=== PATIENT | female | born 1990 | race American Indian/Alaskan Native ===

== ENCOUNTER 2018-08-01 10:10 | Emergency (ER) | payer MEDICAID ==
[2018-08-01 10:10] VITALS: BMI 31.3
[2018-08-01 10:31] VITALS: RESP 18
[2018-08-01] MEDS ORDERED: Sodium Chloride 0.9% 500 ML IV ONE (10:48)
--- NOTE | 2018-08-01 10:50 | C.PDOC ---
History Of Present Illness 28 y/o female, with no significant PMHx, presents to ED c/o lower abdominal pain worse in the left adnexal region for the past week. Pt reports being evaluated at another institution and was told "everything is ok". She also complains of brown vaginal discharge. She admits to being sexually active without protection. Denies fever, n/v/d, or other complaints. Time Seen by Provider: 08/01/18 10:35 Chief Complaint (Nursing): Abdominal Pain History Per: Patient History/Exam Limitations: no limitations Past Medical History Reviewed: Historical Data, Nursing Documentation, Vital Signs Vital Signs: Last Vital Signs Temp 98.9 F 08/01/18 10:28 Pulse 100 H 08/01/18 10:28 Resp 18 08/01/18 10:28 BP 146/103 H 08/01/18 10:28 Pulse Ox 100 08/01/18 10:28 - Medical History PMH: Back Problems (Scoliosis?) - [facility] Procedures LAPAROSCOPIC ROBOTIC ASSISTED PROCEDURE (05/12/15) LOW CERVICAL (10/11/14) OTH LAPAROSCOPIC REP OTH HRN OF ANTER ABD WALL W GRF OR PROS (05/12/15) Family History: States: Unknown Family Hx - Social History Hx Tobacco Use: No Hx Alcohol Use: No Hx Substance Use: No - Immunization History Hx Tetanus Toxoid Vaccination: No Hx Influenza Vaccination: No Hx Pneumococcal Vaccination: No Review Of Systems Except As Marked, All Systems Reviewed And Found Negative. Constitutional: Negative for: Fever, Chills Gastrointestinal: Positive for: Abdominal Pain. Negative for: Nausea, Vomiting, Diarrhea, Constipation Genitourinary: Positive for: Vaginal Discharge. Negative for: Dysuria, Frequency Musculoskeletal: Negative for: Back Pain Physical Exam - Physical Exam Appears: Non-toxic, No Acute Distress Skin: Normal Color, Warm, Dry Head: Atraumatic, Normacephalic Eye(s): bilateral: Normal Inspection Oral Mucosa: Moist Neck: Normal ROM, Supple Chest: Symmetrical Cardiovascular: Rhythm Regular, No Murmur Respiratory: Normal Breath Sounds, No Rales, No Rhonchi, No Wheezing Gastrointestinal/Abdominal: Soft, No Guarding, No Rebound Back: No CVA Tenderness Pelvic: Adnexal Tenderness (left) Extremity: Normal ROM Neurological/Psych: Oriented x3, Normal Speech ED Course And Treatment - Laboratory Results Result Diagrams: 08/01/18 11:16 08/01/18 11:16 O2 Sat by Pulse Oximetry: 100 (RA) Pulse Ox Interpretation: Normal Medical Decision Making Medical Decision Making: suspect ovarin cyst Plan: Blood work Urinalysis Transvag US IV fluids us hows cyst with flow. pain improevd. labs neg. advise outpt fu Disposition - Disposition Disposition: HOME/ ROUTINE Disposition Time: 13:00 Condition: STABLE Forms: [facility] [employer] [facility] (Lithuanian) - Clinical Impression Clinical Impression: Ovarian cyst - Scribe Statement The provider has reviewed the documentation as recorded by the Scribe KP All medical record entries made by the Scribe were at my direction and personally dictated by me. I have reviewed the chart and agree that the record accurately reflects my personal performance of the history, physical exam, medical decision making, and the department course for this patient. I have also personally directed, reviewed, and agree with the discharge instructions and disposition.
[2018-08-01 11:22] LABS: BASO % 0.7 % (0.0-2.0); EOS # 0.1 K/uL (0.0-0.7); EOS % 3.5 % (0.0-4.0); HEMOGLOBIN 11.7 g/dL (11.0-16.0); LYMPH # 1.7 K/uL (1.0-4.3); LYMPH % 46.2 % (20.0-40.0); MEAN CELL VOLUME 89.9 fL (81.0-99.0); MEAN CORPUSCULAR HEMOGLOBIN 30.4 pg (27.0-31.0); MEAN CORPUSCULAR HGB CONC 33.8 g/dL (33.0-37.0); MEAN PLATELET VOLUME 9.4 fL (7.2-11.7); MONO # 0.3 K/uL (0.0-0.8); MONO % 9.2 % (0.0-10.0); NEUT # 1.5 K/uL (1.8-7.0); NEUT % 40.4 % (50.0-75.0); NRBC % 0.1 % (0.0-2.0); RBC 3.86 Mil/uL (3.80-5.20); WHITE BLOOD COUNT 3.7 K/uL (4.8-10.8)
[2018-08-01 11:30] LABS: INR 1.1; PROTHROMBIN TIME 11.9 SECONDS (9.7-12.2)
[2018-08-01 11:35] LABS: HCG,QUALITATIVE URINE NEGATIVE (NEGATIVE)
[2018-08-01 11:36] LABS: SQUAMOUS EPITHIAL 8 /hpf (0-5); URINE BILIRUBIN NEGATIVE (NEGATIVE); URINE BLOOD NEGATIVE (NEGATIVE); URINE CLARITY Clear (Clear); URINE COLOR Yellow (YELLOW); URINE GLUCOSE (UA) NORMAL (Normal); URINE LEUKOCYTE ESTERASE NEG Leu/uL (Negative); URINE PROTEIN NEGATIVE (NEGATIVE); URINE UROBILINOGEN NORMAL mg/dL (0.2-1.0)
[2018-08-01 11:39] LABS: ALB/GLOB RATIO 1.4 (1.0-2.1); ALBUMIN 4.7 g/dL (3.5-5.0); ALT/SGPT 18 U/L (9-52); AST/SGOT 20 U/L (14-36); BLOOD UREA NITROGEN 14 mg/dL (7-17); CALCIUM 9.6 mg/dl (8.6-10.4); GFR NON-AFRICAN AMERICAN > 60
--- NOTE | 2018-08-01 12:39 | US ---
Date of service: 08/01/2018 HISTORY: left sided pelvic pain COMPARISON: None available. TECHNIQUE: Abdominal/transvaginal sonographic evaluation of pelvis performed. FINDINGS: UTERUS: Measures 8.0 x 4.2 x 5.0 cm. Retroverted. Normal in size and appearance. No fibroid or other mass lesion seen. ENDOMETRIUM: Measures 6.0 mm in diameter. Unremarkable. CERVIX: No cervical abnormality identified. RIGHT OVARY: Measures the 2.0 x 2.7 x 2.6 cm. . Normal flow. . Multiple follicular cysts with small echogenic focus possibly representing a calcification measuring 4 mm in greatest dimension. LEFT OVARY: Measures 3.9 x 2.3 x 2.4 cm. No solid mass. Normal flow. Small cyst measuring 1.6 x 1.5 x 1.3 FREE FLUID: No significant free fluid noted. OTHER FINDINGS: None. IMPRESSION: Small left ovarian cyst. Possible on tiny 4 mm calcification right ovary
[2018-08-01 13:32] VITALS: BP 136/79; PULSE 78; TEMP 98
[2018-08-01 15:14] VITALS: O2SAT 100
== END 2018-08-01 13:32 | disposition home or self-care (01) ==
LOC: C.ER 10:10
DX: N83.202 Unspecified ovarian cyst, left side (principal)
CPT/HCPCS: 76830; 76856; 80053; 81001; 84703; 85025; 85610; 85730; 99284; J7040